=== PATIENT | female | born 1960 | race Caucasian/White ===

== ENCOUNTER 2023-11-14 09:17 | Emergency (ER) | payer BC, OTHER ==
[~2023-11-14] VITALS: Ht 172.7 cm; Wt 89.8 kg
[~2023-11-14 09:17] MED LIST: COZAAR50 MG PO; LEXAPRO10 MG PO; PANTOPRAZOLE SO40 MG PO; PREMARIN42.5 GM VG; TYLENOL # 31 EA
[2023-11-14 10:16] LABS: BASOPHILS % 0.5 % (0.0-1.0); EOSINOPHILS # (AUTO) 0.2 (0.0-0.4); EOSINOPHILS % 3.3 % (0.0-6.0); HEMATOCRIT 43.4 % (34.2-44.1); HEMOGLOBIN 13.8 g/dL (12.0-16.0); LYMPHOCYTES # (AUTO) 1.9 (1.0-3.2); LYMPHOCYTES % 34.4 % (18.0-39.1); MEAN CORPUSCULAR HEMOGLOBIN 29.9 pg (28-32); MEAN CORPUSCULAR HGB CONC 31.8 g/dL (31-35); MEAN CORPUSCULAR VOLUME 93.9 fL (81-99); MONOCYTES # (AUTO) 0.5 (0.2-0.8); MONOCYTES % 9.9 % (4.4-11.3); NEUTROPHILS # (AUTO) 2.8 (2.1-6.9); NEUTROPHILS % 51.7 % (38.7-80.0); PLATELET COUNT 302 x10e3/uL (140-360); RED BLOOD COUNT 4.62 x10e6/uL (3.6-5.1); RED CELL DISTRIBUTION WIDTH 13.7 % (11.7-14.4); WHITE BLOOD COUNT 5.46 x10e3/uL (4.8-10.8)
[2023-11-14 10:57] LABS: ALBUMIN 3.9 g/dL (3.5-5.0); ALBUMIN/GLOBULIN RATIO 1.2 (0.8-2.0); ANION GAP 14.8 mmol/L (8-16); BILIRUBIN,TOTAL 0.4 mg/dL (0.2-1.2); CALCIUM 9.2 mg/dL (8.4-10.2); CREATININE, SERUM 0.91 mg/dL (0.57-1.11); POTASSIUM 3.8 mmol/L (3.5-5.1); TOTAL PROTEIN 7.1 g/dL (6.5-8.1)
[2023-11-14 12:13] VITALS: TEMP 98.2
[2023-11-14 12:55] VITALS: PULSE 60; RESP 16
[2023-11-14 13:05] VITALS: BP 135/69; PULSE 66; RESP 15; O2SAT 96
== END 2023-11-14 13:06 | disposition home or self-care (01) ==
LOC: ER 09:22
DX: K43.9 Ventral hernia without obstruction or gangrene (principal); N83.202 Unspecified ovarian cyst, left side; I10 Essential (primary) hypertension; E78.5 Hyperlipidemia, unspecified; K21.9 Gastro-esophageal reflux disease without esophagitis; F32.A Depression, unspecified; F17.210 Nicotine dependence, cigarettes, uncomplicated
CPT/HCPCS: 36415; 74177; 80053; 85025; 99284

== ENCOUNTER 2024-02-01 09:57 | Inpatient (IN) | payer BC ==
[2024-01-27 10:13] LABS: BASOPHILS # (AUTO) 0.1 (0.0-0.1); BASOPHILS % 0.7 % (0.0-1.0); EOSINOPHILS # (AUTO) 0.2 (0.0-0.4); EOSINOPHILS % 2.6 % (0.0-6.0); HEMATOCRIT 45.7 % (34.2-44.1); HEMOGLOBIN 15.1 g/dL (12.0-16.0); LYMPHOCYTES # (AUTO) 2.1 (1.0-3.2); LYMPHOCYTES % 25.9 % (18.0-39.1); MEAN CORPUSCULAR HEMOGLOBIN 30.4 pg (28-32); MONOCYTES # (AUTO) 0.9 (0.2-0.8); MONOCYTES % 10.7 % (4.4-11.3); NEUTROPHILS # (AUTO) 4.7 (2.1-6.9); NEUTROPHILS % 58.6 % (38.7-80.0); PLATELET COUNT 372 x10e3/uL (140-360); RED BLOOD COUNT 4.97 x10e6/uL (3.6-5.1); RED CELL DISTRIBUTION WIDTH 13.7 % (11.7-14.4); WHITE BLOOD COUNT 8.07 x10e3/uL (4.8-10.8)
[2024-01-27 10:33] LABS: ANION GAP 16.2 mmol/L (8-16); CALCIUM 9.9 mg/dL (8.4-10.2); CREATININE, SERUM 1.27 mg/dL (0.57-1.11); POTASSIUM 4.2 mmol/L (3.5-5.1)
[~2024-02-01] VITALS: Ht 172.7 cm; Wt 91.6 kg
[~2024-02-01 09:57] MED LIST changes: +LOSARTAN POTAS100 MG PO; +NORVASC5 MG PO; +ROSUVASTATIN CAL5 MG PO; +TRELEGY ELLIPT1 EACH INH; +ZETIA10 MG PO; +[UNRECOGNIZED DRUG - OTHER] PO
[2024-02-01] MEDS: LACTATED RINGER'S 1,000 ML ONE (10:21)
[2024-02-01] MEDS ORDERED: LIDOCAINE HCL 2% LOCAL INJ 5 ML SDV VIAL INJ ONE (11:07)
[2024-02-01] MEDS ORDERED: PROPOFOL IV EMULSION 10 MG/ML 20 ML VIAL ONE (11:07)
[2024-02-01] MEDS ORDERED: ROCURONIUM BROMIDE 1 ML IV ONE ×2 (11:11→13:57)
[2024-02-01] MEDS ORDERED: BUPIVACAINE LIPOSOME/PF 266 MG/20 ML IJ ONE (12:30)
[2024-02-01] MEDS ORDERED: FENTANYL CITRATE/PF 100MCG/2 ML INJ ONE ×2 (12:32→16:02)
[2024-02-01] MEDS ORDERED: DEXAMETHASONE SOD PHOS INJ 4 MG/ML SDV ONE (12:54)
[2024-02-01] MEDS ORDERED: EPHEDRINE SULFATE INJ 50 MG/ML VIAL ONE (13:21)
[2024-02-01] MEDS ORDERED: ONDANSETRON HCL INJ 2MG/ML 2ML 2 MG/ML VIAL ONE (13:36)
[2024-02-01] MEDS ORDERED: ACETAMINOPHEN 1000 MG/100 ML 100 ML IV ONE (13:54)
[2024-02-01] MEDS ORDERED: SUGAMMADEX SODIUM 200 MG/2 ML VIAL IV ONE (15:08)
[2024-02-01] MEDS ORDERED: ONDANSETRON HCL INJ 2MG/ML 2ML 2 MG/ML VIAL IV PRN (15:45)
[2024-02-01] MEDS ORDERED: ACETAMINOPHEN 1000 MG/100 ML IV PRN (15:45)
[2024-02-01] MEDS ORDERED: NALOXONE HCL INJ 0.4 MG/ML AMP IV PRN (15:45)
[2024-02-01] MEDS ORDERED: ALBUTEROL/IPRATROPIUM 3 ML NEB ONE (15:51)
[2024-02-01] MEDS: HYDROMORPHONE 0.2MG/ML-SOD CHL 30ML PCA SYRINGE IV PRN (16:19)
[2024-02-01] MEDS ORDERED: INFLUENZA VIRUS VAC SPLIT INJ 0.5 ML SYR IM SCH (17:23)
[2024-02-01] MEDS ORDERED: PNEUMOCOCCAL VACCINE POLYVALENT 23 MCG/0.5 ML VIAL IM SCH (17:23)
[2024-02-01 17:30] VITALS: BP 117/81; PULSE 98; RESP 16; TEMP 97.7; O2SAT 95
[2024-02-01 17:31] VITALS: BP 117/81; PULSE 88; RESP 16; TEMP 97.7; O2SAT 98
[2024-02-01 17:53] VITALS: BP 117/81; PULSE 88; RESP 16; TEMP 97.7; O2SAT 98
[2024-02-01] MEDS: SODIUM CHLORIDE 0.9% 1000ML 1,000 ML IV SCH (18:15)
[2024-02-01 19:50] VITALS: PULSE 99; RESP 18; O2SAT 94
[2024-02-01 20:00] VITALS: BP 116/81; PULSE 104; RESP 18; TEMP 97.8; O2SAT 96
[2024-02-01 20:52] VITALS: BP 116/81; PULSE 104; RESP 18; TEMP 97.8; O2SAT 96
[2024-02-02] VITALS (7 sets, daily range): BP systolic 104–121; BP diastolic 77–85; PULSE 89–112; RESP 17–21; TEMP 97.6–98.2; O2SAT 90–98
[2024-02-02 05:38] LABS: BASOPHILS % 0.1 % (0.0-1.0); HEMATOCRIT 39.7 % (34.2-44.1); LYMPHOCYTES # (AUTO) 0.7 (1.0-3.2); LYMPHOCYTES % 4.9 % (18.0-39.1); MEAN CORPUSCULAR HEMOGLOBIN 30.5 pg (28-32); MEAN CORPUSCULAR HGB CONC 32.7 g/dL (31-35); MEAN CORPUSCULAR VOLUME 93.2 fL (81-99); MONOCYTES # (AUTO) 0.3 (0.2-0.8); MONOCYTES % 2.2 % (4.4-11.3); NEUTROPHILS # (AUTO) 12.8 (2.1-6.9); NEUTROPHILS % 92.3 % (38.7-80.0); PLATELET COUNT 333 x10e3/uL (140-360); RED BLOOD COUNT 4.26 x10e6/uL (3.6-5.1); RED CELL DISTRIBUTION WIDTH 14.1 % (11.7-14.4); WHITE BLOOD COUNT 13.85 x10e3/uL (4.8-10.8)
[2024-02-02 06:00] LABS: ANION GAP 17.3 mmol/L (8-16); CALCIUM 9.3 mg/dL (8.4-10.2); CREATININE, SERUM 0.96 mg/dL (0.57-1.11); POTASSIUM 4.3 mmol/L (3.5-5.1)
[2024-02-02] MEDS: LOSARTAN POTASSIUM 100 MG TAB PO SCH (09:06)
[2024-02-02] MEDS: EZETIMIBE 10 MG TAB PO SCH (09:07)
[2024-02-02] MEDS: ESCITALOPRAM OXALATE 10 MG TAB PO SCH (09:07)
[2024-02-02] MEDS: AMLODIPINE BESYLATE 5 MG TAB PO SCH (09:07)
[2024-02-02] MEDS: VILANTER INH SCH (09:09)
[2024-02-02] MEDS: FLUTICASONE INH SCH (09:09)
[2024-02-02] MEDS: UMECLIDIN INH SCH (09:09)
== END 2024-02-02 18:00 | disposition home or self-care (01) | DRG 337 ==
LOC: OR 09:57 → PACU V 15:42 → MED/SURG 17:03
PROVIDERS: ADMIT Surgery; ATTEND Surgery
PROC: 0WUF0JZ Supplement Abdominal Wall with Synthetic Substitute, Open Approach (ICD-10-PCS; 2024-02-01)
PROC: 0DNU0ZZ Release Omentum, Open Approach (ICD-10-PCS; principal; 2024-02-01 12:44)
DX: K43.6 Other and unspecified ventral hernia with obstruction, without gangrene (principal); I10 Essential (primary) hypertension; K66.0 Peritoneal adhesions (postprocedural) (postinfection)
CPT/HCPCS: 36415; 71046; 80048; 85025; 88302; 93005; 94799; C1781; J0690; J1100; J2003; J2405; J7030